=== PATIENT | male | born 2000 | race Hispanic/Latino ===

== ENCOUNTER 2023-12-13 12:06 | Emergency (ER) | payer OTHER ==
[~2023-12-13] VITALS: Ht 170.2 cm; Wt 86.2 kg
[2023-12-13 12:26] LABS: BASOPHILS # (AUTO) 0.1 (0.0-0.1); BASOPHILS % 0.9 % (0.0-1.0); EOSINOPHILS # (AUTO) 0.3 (0.0-0.4); EOSINOPHILS % 3.6 % (0.0-6.0); HEMATOCRIT 45.1 % (38.2-49.6); HEMOGLOBIN 14.8 g/dL (14.0-18.0); LYMPHOCYTES # (AUTO) 1.2 (1.0-3.2); LYMPHOCYTES % 15.9 % (18.0-39.1); MEAN CORPUSCULAR HEMOGLOBIN 30.4 pg (28-32); MEAN CORPUSCULAR HGB CONC 32.8 g/dL (31-35); MEAN CORPUSCULAR VOLUME 92.6 fL (81-99); MONOCYTES # (AUTO) 0.5 (0.2-0.8); MONOCYTES % 6.5 % (4.4-11.3); NEUTROPHILS # (AUTO) 5.6 (2.1-6.9); NEUTROPHILS % 72.8 % (38.7-80.0); PLATELET COUNT 252 x10e3/uL (140-360); RED BLOOD COUNT 4.87 x10e6/uL (4.3-5.7); RED CELL DISTRIBUTION WIDTH 12.3 % (11.7-14.4); WHITE BLOOD COUNT 7.69 x10e3/uL (4.8-10.8)
[2023-12-13 12:30] LABS: PARTIAL THROMBOPLASTIN TIME 30.8 seconds (23.8-35.5); PROTHROMBIN TIME 13.7 seconds (11.9-14.5)
[2023-12-13] MEDS ORDERED: IOPAMIDOL 370 MG/ML 100 ML INFUS..BTL INJ ONE (12:36)
[2023-12-13] MEDS ORDERED: SODIUM CHLORIDE 0.9% 100 ML ONE (12:36)
[2023-12-13 12:40] LABS: ALBUMIN 4.3 g/dL (3.5-5.0); ALBUMIN/GLOBULIN RATIO 1.4 (0.8-2.0); ANION GAP 14.4 mmol/L (8-16); BILIRUBIN,TOTAL 0.5 mg/dL (0.2-1.2); CALCIUM 9.8 mg/dL (8.4-10.2); CREATININE, SERUM 1.44 mg/dL (0.72-1.25); MAGNESIUM 2.1 MG/DL (1.3-2.1); POTASSIUM 4.4 mmol/L (3.5-5.1); TOTAL PROTEIN 7.4 g/dL (6.5-8.1)
[2023-12-13 12:46] LABS: TROPONIN I 0.005 ng/mL (0-0.300)
[2023-12-13] MEDS: KETOROLAC TROMETHAMINE 30 MG/ML VIAL IV STA (13:10)
[2023-12-13] MEDS: SODIUM CHLORIDE 0.9% 1000ML 1,000 ML IV STA (13:10)
[2023-12-13] MEDS: ACETAMINOPHEN 325 MG TAB PO ONE (13:33)
[2023-12-13 14:12] VITALS: BP 129/78; PULSE 92; RESP 18
[2023-12-13 15:32] LABS: INFLUENZAE A&B ANTIGEN (RAPID) NEGATIVE (NEGATIVE)
[2023-12-13 15:33] LABS: RESPIRATORY SYNC. VIRUS NEGATIVE (NEGATIVE)
[2023-12-13] MEDS ORDERED: PREDNISONE 20 MG TAB PO ONE (15:45)
[2023-12-13] MEDS ORDERED: PREDNISONE20 MG PO (15:49)
[2023-12-13 16:21] VITALS: PULSE 71; RESP 18; TEMP 98.1; O2SAT 98
== END 2023-12-13 16:25 | disposition home or self-care (01) ==
LOC: ER 12:14
DX: R06.02 Shortness of breath (principal); R07.89 Other chest pain; J20.8 Acute bronchitis due to other specified organisms; Z11.52 Encounter for screening for COVID-19
CPT/HCPCS: 0223U; 36415; 71045; 71260; 80053; 82550; 83735; 83880; 84484; 85025; 85610; 85730; 87400; 87420; 93005; 99284; J1885; J7030; J7050; Q9967